=== PATIENT | male | born 1940 | race Two or more races ===

== ENCOUNTER 2017-01-12 13:03 | Emergency (ER) | payer OTHER ==
[2017-01-12 13:18] VITALS: O2SAT 95
[2017-01-12] MEDS ORDERED: LET GEL TOPICAL 1 EA SYR TP ONE ×2 (13:21→13:23)
--- NOTE | 2017-01-12 15:11 | EDPHY ---
H & P Time Seen by Provider: 01/12/17 14:09 HPI/ROS: This patient was opening a package with small pocket knife that slipped and caused a laceration to the dorsum of his left thumb shortly prior to arrival while at home. He reports moderate pain and moderate bleeding that slowed with direct pressure. He has no other complaints associated with his injury and no other injuries. ROS: Neuro: No numbness or tingling. Musculoskeletal: Reports mild ache at the site of the injury but no difficulty moving the finger. 5 point ROS is otherwise negative Smoking Status: Never smoked Physical Exam: Physical Exam Vital signs are normal. General: No acute distress Lungs: No respiratory distress. Cardiac: Brisk capillary refill is intact throughout. Pulses are 2+ and symmetric in the affected extremity. Skin: No rash or pallor. Extremities: Atraumatic normal except for left thumb Left thumb: Patient has a 1.3 cm full-thickness laceration to the dorsum of the left thumb at the metacarpophalangeal joint region with no evidence of tendon injury on direct exam. No foreign bodies. Mild bleeding is present. Neuro: Alert with no sensorimotor deficits in the affected thumb. Constitutional: Initial Vital Signs Temperature (C) 36.8 C 01/12/17 13:05 Heart Rate 81 01/12/17 13:05 Respiratory Rate 16 01/12/17 13:05 Blood Pressure 131/104 H 01/12/17 13:05 O2 Sat (%) 95 01/12/17 13:05 O2 Delivery Mode Room Air Allergies/Adverse Reactions: No Known Allergies Allergy (Verified 01/12/17 13:18) Home Medications: Medication Instructions Recorded Amlodipine Besylate 01/12/17 Lipitor 01/12/17 Nexium 01/12/17 MDM/Departure - MDM Procedures: The wound is anesthetized with let solution followed by 1% plain lidocaine mixed 50 50 with 0.5% Marcaine-1.5 mL of 27 gauge needle with good effect. The wound was copiously irrigated with saline. The wound was explored for foreign bodies and none were found. The wound was prepped and draped in the normal sterile fashion. The edges were reapproximated using 4 0 Ethilon-5 running sutures with good hemostasis and cosmesis. The patient tolerated the procedure well. There were no complications. Patient is placed in tube gauze I counseled him regarding wound care. Medications Given: Discontinued Medications Tetracaine/Epinephrine/Lidocaine (Let Gel Topical) 1 ea TP EDNOW ONE Stop: 01/12/17 13:24 Last Admin: 01/12/17 13:23 Dose: 1 ea - Depart Disposition: Home, Routine, Self-Care Clinical Impression: Thumb laceration Qualifiers: Encounter type: initial encounter Damage to nail status: without damage Foreign body presence: without foreign body Laterality: left Qualified Code(s): S61.012A - Laceration without foreign body of left thumb without damage to nail , initial encounter Condition: Good Instructions: Finger Laceration (ED) Additional Instructions: Diagnosis: Thumb laceration Plan: Keep the wound clean and dry for the next 2 days. Then clean the wound daily with warm soapy water Return for suture removal in 10-12 days Tylenol for discomfort if needed. Return sooner if he develops redness, discharge or any other concerns for infection. Referrals: [facility] [Other] - As per Instructions
[2017-01-12] MEDS ORDERED: BACITRACIN OINTMENT 1 PACKET TP ONE (15:16)
[2017-01-12 15:32] VITALS: BP 134/95; PULSE 80; RESP 20; TEMP 98.4
== END 2017-01-12 15:31 | disposition home or self-care (01) ==
LOC: CED 13:03
PROC: 0HQGXZZ Repair Left Hand Skin, External Approach (ICD-10-PCS; principal; 2017-01-12)
DX: S61.012A Laceration without foreign body of left thumb without damage to nail, initial encounter (principal); W26.0XXA Contact with knife, initial encounter